=== PATIENT | female | born 1950 | race Caucasian/White ===

== ENCOUNTER 2024-06-04 10:17 | Day surgery (SDC) | payer BC, OTHER ==
[2024-06-04 10:59] VITALS: BMI 26.0
[2024-06-04 12:09] VITALS: TEMP 97.9
[2024-06-04 12:12] VITALS: BP 118/60; PULSE 62; RESP 19
== END 2024-06-04 12:41 | disposition home or self-care (01) ==
LOC: FASU-ENDO 10:17
PROVIDERS: ATTEND Internal Medicine Gastroenterology
PROC: 0DBL8ZX Excision of Transverse Colon, Via Natural or Artificial Opening Endoscopic, Diagnostic (ICD-10-PCS; 2024-06-04)
PROC: 0DBM8ZX Excision of Descending Colon, Via Natural or Artificial Opening Endoscopic, Diagnostic (ICD-10-PCS; 2024-06-04)
PROC: 0DBK8ZX Excision of Ascending Colon, Via Natural or Artificial Opening Endoscopic, Diagnostic (ICD-10-PCS; principal; 2024-06-04 11:34)
DX: K64.1 Second degree hemorrhoids (principal); R19.7 Diarrhea, unspecified
CPT/HCPCS: 88305-TC